=== PATIENT | female | born 1995 | race Caucasian/White ===

== ENCOUNTER 2021-08-09 08:44 | Emergency (ER) | payer SELFPAY ==
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
== END 2021-08-09 11:40 | disposition home or self-care (01) ==
LOC: DL.ED 08:44
DX: S30.1XXA Contusion of abdominal wall, initial encounter (principal); W22.09XA Striking against other stationary object, initial encounter
CPT/HCPCS: 74177; 81003; 81025; 99284-25